=== PATIENT | male | born 1960 | race Hispanic/Latino ===

== ENCOUNTER 2023-05-03 08:22 | Outpatient (CLI) | payer OTHER ==
[2023-05-03] MEDS ORDERED: Magnevist 469MG/ML 20 ML VIAL ONE (15:15)
== END 2023-05-03 08:23 | disposition home or self-care (01) ==
LOC: CSHMRI 08:22
PROVIDERS: ATTEND Urology
DX: R97.20 Elevated prostate specific antigen [PSA] (principal)
CPT/HCPCS: 72197; 82565